=== PATIENT | female | born 1980 | race Caucasian/White ===

== ENCOUNTER 2022-03-15 09:11 | Outpatient (CLI) | payer BC | END 2022-03-15 09:12 | disposition home or self-care (01) | LOC: SCSMRI 09:11 | PROVIDERS: ATTEND Nurse Practitioner Family | DX: M51.17 Intervertebral disc disorders with radiculopathy, lumbosacral region (principal); M47.817 Spondylosis without myelopathy or radiculopathy, lumbosacral region | CPT/HCPCS: 72148 ==

== ENCOUNTER 2022-03-30 08:33 | Outpatient (CLI) | payer BC | END 2022-03-30 08:34 | disposition home or self-care (01) | LOC: DTY/OP 08:33 | PROVIDERS: ATTEND Surgery | DX: E66.01 Morbid (severe) obesity due to excess calories (principal) | CPT/HCPCS: 97802 ==